=== PATIENT | female | born 1995 | race Two or more races ===

== ENCOUNTER 2022-12-11 06:21 | Inpatient (IN) ==
[~2022-12-11 06:21] MED LIST: AMPICILLIN VIAL 1 GRAM 1 G in NS 50 ML IV + SPIKE MINIBAG* 50 ML IV SCH; AMPICILLIN VIAL 2 GRAM 2 G in NS 100 ML IV + SPIKE MINIBAG* 100 ML IV SCH; D5 1/2 NS 1,000 ML 1,000 ML IV SCH; D5 LR + PITOCIN 10 UNITS/L 10 UNITS/1,000 ML BAG IV PRN; NUBAIN INJ 20 MG AMP IVP PRN; PITOCIN IVP ONE; REGLAN INJ 10 MG VIAL IVP PRN; STADOL INJ IVP PRN; VSL#3 PO SCH; ZOFRAN INJ 4 MG VIAL IVP PRN
[2022-12-11] MEDS ORDERED: PITOCIN ONE (06:40)
[2022-12-11] MEDS ORDERED: D5 1/2 NS 1,000 ML 1,000 ML IV ONE (06:40)
[2022-12-11] MEDS ORDERED: BETADINE SOLN ONE (06:40)
[2022-12-11] MEDS ORDERED: D5 1/2 NS 1,000 mL + PITOCIN 20 UNITS/L IV 20 UNITS/1,000 ML BAG IV ONE (06:41)
[2022-12-11] MEDS ORDERED: D5 LR + PITOCIN 10 UNITS/L 10 UNITS/1,000 ML BAG IV ONE ×2 (06:41→16:21)
[2022-12-11] MEDS ORDERED: AMPICILLIN VIAL 2 GRAM 2 G in NS 100 ML IV + SPIKE MINIBAG* 100 ML IV SCH (07:30)
--- NOTE | 2022-12-11 07:34 | DR.OB ---
OB Quick Note - Assessment/Plan Assessment/Plan: L&D 12/11/22 at 7:10am S-No complaint. O-Afebrile,VSS ASA=167 with good LTV, +accel, no decel. CTX=mild uterine irritability CVX=2cm/50%/-1/VTX AROM with clear fluid. IUPC and FSE placed. A-IUP at 39 1/7 weeks for induction +GBS P-Begin pitocin induction IV ABX in labor for +GBS Anticipate
[2022-12-11] MEDS ORDERED: NS 100 ML IV 100 ML ONE ×4 (07:35→19:32)
[2022-12-11] MEDS ORDERED: AMPICILLIN VIAL 2 GRAM ONE (07:35)
[2022-12-11] MEDS ORDERED: REGLAN INJ 10 MG VIAL IVP PRN (07:49)
[2022-12-11] MEDS ORDERED: ZOFRAN INJ 4 MG VIAL IVP PRN (07:49)
[2022-12-11] MEDS ORDERED: D5 LR + PITOCIN 10 UNITS/L 10 UNITS/1,000 ML BAG IV PRN (07:49)
[2022-12-11] MEDS ORDERED: LR 1,000 ML IV 1,000 ML IV ONE ×2 (07:49→11:08)
[2022-12-11] MEDS ORDERED: STADOL INJ IVP PRN (07:49)
[2022-12-11] MEDS ORDERED: D5 1/2 NS 1,000 ML 1,000 ML IV SCH (08:00)
[2022-12-11] MEDS ORDERED: FENTANYL VIAL INJ 100 mcg ONE ×2 (11:08→15:09)
[2022-12-11] MEDS ORDERED: NAROPIN EPIDURAL 0.2% 100 ML ONE (11:09)
[2022-12-11] MEDS ORDERED: AMPICILLIN VIAL 1 GRAM ONE ×3 (11:18→19:32)
[2022-12-11] MEDS ORDERED: AMPICILLIN VIAL 1 GRAM 1 G in NS 50 ML IV + SPIKE MINIBAG* 50 ML IV SCH (11:30)
--- NOTE | 2022-12-11 12:38 | DR.OB ---
OB Quick Note - Assessment/Plan Assessment/Plan: L&D 12/11/22 at 12:30pm Pitocin=12mu/min. Ampicillin S-No complaint. s/p epidural. O-Afebrile,VSS NRK=268 with good LTV, +accel, no decel. CTX=q 1 1/2 to 3 min., about 35-65mmHg CVX=3cm/50%/-1/VTX A-IUP at 39 1/7 weeks for induction +GBS P-Cont. pitocin induction Cont. ABX in labor for +GBS Anticipate
[2022-12-11] MEDS ORDERED: ZOFRAN INJ 4 MG VIAL ONE (13:45)
[2022-12-11] MEDS ORDERED: AMPICILLIN VIAL 1 GRAM 1 G in NS 50 ML IV 50 ML IV SCH (16:00)
--- NOTE | 2022-12-11 18:35 | DR.OB ---
OB Quick Note - Assessment/Plan Assessment/Plan: L&D 12/11/22 at 6:30pm Pitocin=20mu/min. Ampicillin S-No complaint except pressure with CTX. O-Afebrile,VSS XWW=526 with good LTV, +accel, no decel. CTX=q 1 1/2 to 3 min., about 45-55mmHg CVX=8cm/100%/0 A-IUP at 39 1/7 weeks for induction +GBS P-Cont. pitocin induction Cont. IV ABX in labor Anticipate
[2022-12-11] MEDS ORDERED: MOTRIN TAB 800 MG PO PRN (21:35)
--- NOTE | 2022-12-11 21:35 | DR.OB ---
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 Head delivered over intact perineum. Nose and mouth bulb suctioned. No nuchal cord. Body delivered over intact perineum. Cord clamped x 2 and cut. handed to attendant. Cord sent for gases. Placenta delivered spontaneously / intact / 3 vessel cord. A midline second degree tear noted and repaired with 0-vicryl in usual fashion. No CVX tears. Viable female delivered by , wt=8'6" and 8/9, stable to NBN. Mother stable to RR. GEF=[id number].
[2022-12-11] MEDS: D5 1/2 NS 1,000 ML 1,000 ML with PITOCIN 20 UNITS IV SCH ×2 (21:45)
[2022-12-11] MEDS ORDERED: ADACEL or BOOSTRIX TDaP VACCINE IM ONE (22:27)
[2022-12-11] MEDS ORDERED: AMBIEN PO PRN (22:27)
[2022-12-11] MEDS ORDERED: MILK OF MAGNESIA PO PRN (22:27)
[2022-12-11] MEDS ORDERED: DERMOPLAST PAIN RELIEF SPRAY TOP PRN (22:27)
[2022-12-12] MEDS ORDERED: ADACEL or BOOSTRIX TDaP VACCINE IM ONE (05:30)
[2022-12-12 05:39] LABS: HEMATOCRIT 30.5 % (36.0-47.0)
[2022-12-12] MEDS: D5 1/2 NS 1,000 ML 1,000 ML with PITOCIN 20 UNITS IV SCH ×6 (06:06→21:41)
[2022-12-12] MEDS: PRENATAL PLUS PO SCH (13:03)
[2022-12-12] MEDS: COLACE CAP 100 MG PO SCH ×2 (13:03→21:40)
[2022-12-13 01:13] VITALS: RESP 18
[2022-12-13 05:33] VITALS: O2SAT 99
[2022-12-13] MEDS: D5 1/2 NS 1,000 ML 1,000 ML with PITOCIN 20 UNITS IV SCH ×2 (05:53)
[2022-12-13] MEDS: PRENATAL PLUS PO SCH (08:17)
[2022-12-13 09:10] VITALS: BP 117/73
[2022-12-13 09:11] VITALS: PULSE 80; TEMP 98.1
== END 2022-12-13 12:00 | disposition home or self-care (01) | DRG 807 ==
LOC: LD 06:21 → MED/SURG 23:47
PROVIDERS: ADMIT Specialist; ATTEND Specialist

== ENCOUNTER 2025-03-20 06:32 | Inpatient (IN) ==
[2025-03-20] MEDS ORDERED: ZOFRAN INJ 4 MG VIAL IVP PRN (06:43)
[2025-03-20] MEDS ORDERED: REGLAN INJ 10 MG VIAL IVP PRN (06:43)
[2025-03-20] MEDS ORDERED: NUBAIN INJ 10 MG AMP IVP PRN (06:43)
[2025-03-20] MEDS ORDERED: AMPICILLIN VIAL 2 GRAM 2 G in NS 100 ML IV + SPIKE MINIBAG* 100 ML IV SCH (06:43)
[2025-03-20] MEDS ORDERED: NS 100 ML IV 100 ML ONE ×2 (06:46→12:56)
[2025-03-20] MEDS ORDERED: D5 1/2 NS 1,000 ML 1,000 ML IV ONE (06:46)
[2025-03-20] MEDS ORDERED: PITOCIN ONE (06:46)
[2025-03-20] MEDS: AMPICILLIN VIAL 2 GRAM 2 G in NS 100 ML IV 100 ML IV NR (07:00)
[2025-03-20] MEDS: D5 1/2 NS 1,000 ML 1,000 ML IV SCH (07:00)
--- NOTE | 2025-03-20 07:38 | DR.OB ---
OB QUICK NOTE Assessment/Plan (1) Encounter for induction of labor: Assessment/Plan: L&D 03/20/25 at 7:20am S-No complaint. O-Afebrile,VSS AIX=047 with good LTV, +accel, no decel. CTX=occasional, mild CVX=1cm/50%/-1/VTX AROM with clear fluid. IUPC and FSE placed. A-IUP at 38 4/7 weeks for induction A1DM +GBS P-Begin pitocin induction IV ABX in labor for +GBS F/U labs Anticipate (2) Gestational diabetes:
[2025-03-20] MEDS: OXYTOCIN 20 UNIT/1,000 ML-NS 20 UNIT/1,000 ML PLAST..BAG IV PRN (07:50)
[2025-03-20] MEDS: LR 1,000 ML IV 1,000 ML IV ONE (10:14)
[2025-03-20] MEDS: AMPICILLIN VIAL 1 GRAM 1 G in NS 50 ML IV 50 ML IV SCH (12:00)
[2025-03-20] MEDS: EPHEDRINE SULFATE INJ ONE (12:23)
[2025-03-20] MEDS: BETADINE SOLN ONE (13:35)
[2025-03-20] MEDS: PITOCIN IVP ONE (13:58)
[2025-03-20] MEDS ORDERED: DERMOPLAST PAIN RELIEF SPRAY TOP PRN (14:47)
[2025-03-20] MEDS ORDERED: MILK OF MAGNESIA PO PRN (14:47)
[2025-03-20] MEDS ORDERED: MOTRIN TAB 800 MG PO PRN (14:47)
[2025-03-20] MEDS ORDERED: AMBIEN PO PRN (14:47)
--- NOTE | 2025-03-20 15:00 | DR.OB ---
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 Mother and infant were stable. Head delivered over intact perineum (OP). Nose and mouth were bulb suctioned upon delivery of the head. No nuchal cord was noted. Body was delivered over intact perineum. Cord was clamped x 2 and cut with the being handed over for waiting attendants. A cord segment was sent for gases. The placenta was delivered spontaneously/intact/three-vessel cord. No cervical tears were noted. A second-degree midline tear was noted and repaired with 0 Vicryl in usual fashion. A viable female was delivered by spontaneous vaginal delivery, vertex/OP, weight 7 pounds 5 ounces, Apgars 8 at 1 minute and 9 at 5 minutes, sent to the nursery. Mother was stable to the recovery room. Estimated blood loss 200 cc. (2) Gestational diabetes:
[2025-03-20] MEDS: ADACEL or BOOSTRIX TDaP VACCINE IM ONE (19:03)
[2025-03-20] MEDS: MOTRIN TAB 800 MG PO PRN (20:25)
[2025-03-21] MEDS: VISBIOME PROBIOTIC CAP 112.5 B or equivalent PO SCH (04:33)
[2025-03-21] MEDS: AMPICILLIN VIAL 2 GRAM ONE (04:33)
[2025-03-21] MEDS: OXYTOCIN 20 UNIT/1,000 ML-NS 20 UNIT/1,000 ML PLAST..BAG IV SCH (04:34)
[2025-03-21] MEDS: AMPICILLIN VIAL 1 GRAM ONE (04:34)
[2025-03-21] MEDS: NAROPIN EPIDURAL 0.2% 100 ML ONE (04:34)
[2025-03-21] MEDS: FENTANYL VIAL INJ 100 mcg ONE (04:34)
[2025-03-21] MEDS: PRENATAL PLUS PO SCH (09:31)
[2025-03-21 13:08] VITALS: BP 113/73; PULSE 69; RESP 18; TEMP 97.9; O2SAT 18
== END 2025-03-21 13:35 | disposition home or self-care (01) | DRG 806 ==
LOC: LD 06:32 → MED/SURG 15:25
PROVIDERS: ADMIT Specialist; ATTEND Specialist
DX: B95.1 Streptococcus, group B, as the cause of diseases classified elsewhere; Z3A.38 38 weeks gestation of pregnancy; O98.82 Other maternal infectious and parasitic diseases complicating childbirth; O70.1 Second degree perineal laceration during delivery; Z37.0 Single live birth; O24.410 Gestational diabetes mellitus in pregnancy, diet controlled